=== PATIENT | male | born 1970 | race Caucasian/White ===

== ENCOUNTER 2022-12-24 13:58 | Inpatient (IN) | payer BC ==
[~2022-12-24] VITALS: Ht 188 cm; Wt 84.8 kg
[2022-12-24] MEDS ORDERED: IOHEXOL-350 100 ML BOTTLE ONE (14:27)
[2022-12-24 15:20] LABS: BASOPHILS % 0.5 % (0.0-2.0); EOSINOPHILS % 0.5 % (0.0-5.0); HEMATOCRIT. 49.9 % (42.0-52.0); HEMOGLOBIN. 16.8 g/dL (14.0-18.0); MEAN CORPUSCULAR VOLUME 86.5 fL (80.0-94.0); MEAN PLATELET VOLUME 8.3 fl (7.4-10.4); MONOCYTES % 6.8 % (2.0-8.0); NEUTROPHILS % 66.2 % (40.0-76.0); PLATELET 246 x1000/uL (130-400); RED BLOOD CELL COUNT 5.77 mill/uL (4.7-6.1); RED CELL DISTRIBUTION WIDTH 13.1 % (11.6-14.6)
[2022-12-24 15:25] LABS: CHLORIDE 98 mEq/L (98-107)
[2022-12-24 15:31] LABS: ETHANOL BLOOD < 10 mg/dL
[2022-12-24 16:02] LABS: PROTHROMBIN TIME 10.9 sec (9.6-11.0)
[2022-12-24 17:24] LABS: CLARITY URINE CLEAR (CLEAR); COLOR URINE YELLOW (YELLOW); KETONES URINE TRACE (NEGATIVE); LEUKOCYTE ESTERASE URINE NEGATIVE (NEGATIVE); NITRITE URINE NEGATIVE (NEGATIVE); OCCULT BLOOD URINE NEGATIVE (NEGATIVE); PH URINE 5.5 (4.5-8.0); PROTEIN URINE NEGATIVE (NEGATIVE); SPECIFIC GRAVITY URINE 1.065 (1.005-1.030); UROBILINOGEN URINE 0.2 E.U./dL (0.2-1.0)
[2022-12-24 17:44] LABS: *AMPHETAMINES SCREEN URINE NEGATIVE (NEGATIVE); *BARBITURATES SCREEN URINE NEGATIVE (NEGATIVE); *BENZODIAZEPINES SCREEN URINE NEGATIVE (NEGATIVE); *COCAINE SCREEN URINE NEGATIVE (NEGATIVE); CANNABINOID URINE SCREEN NEGATIVE (NEGATIVE); METHADONE URINE SCREEN NEGATIVE (NEGATIVE); OPIATES URINE SCREEN NEGATIVE (NEGATIVE); PHENCYCLIDINE URINE SCREEN NEGATIVE (NEGATIVE)
[2022-12-24] MEDS ORDERED: DOCUSATE SODIUM 100MG CAPSULE PO PRN (21:30)
[2022-12-24] MEDS ORDERED: CLONIDINE 0.1MG TABLET PO PRN (21:30)
[2022-12-24] MEDS ORDERED: ACETAMINOPHEN 325MG TABLET PO PRN ×2 (21:30)
[2022-12-24] MEDS ORDERED: ONDANSETRON HCL 4MG/2ML INJ IV PRN (21:30)
[2022-12-24] MEDS ORDERED: GUAIFENESIN 200MG/10ML SUGAR FREE UDC PO PRN (21:30)
[2022-12-24] MEDS ORDERED: ASPIRIN 81MG TABLET PO NR (21:30)
[2022-12-24] MEDS ORDERED: IPRATROPIUM/ALBUTEROL 0.5-3(2.5)MG/3ML NEB HHN PRN (21:30)
[2022-12-24] MEDS ORDERED: DEXTROSE 50% WATER 50ML SYRINGE IV PRN (21:30)
[2022-12-24] MEDS ORDERED: CLOPIDOGREL 75MG TABLET PO NR (22:00)
[2022-12-25] VITALS (7 sets, daily range): BP systolic 95–102; BP diastolic 45–75
[2022-12-25 00:48] LABS: T4 FREE 1.2 ng/dL (0.76-1.46)
[2022-12-25 00:59] LABS: FOLIC ACID (FOLATE) SERUM >20 ng/mL ng/mL (>5.38); VITAMIN B12 SERUM 649 pg/mL (211-911)
[2022-12-25 01:05] LABS: CREATINE KINASE 132 IU/L (39-308); CREATINE KINASE MB FRACTION 1.2 ng/mL (0.5-3.6)
[2022-12-25 05:35] LABS: HEMATOCRIT 46.9 % (42.0-52.0); MEAN CORPUSCULAR HEMOGLOBIN 29.4 pg (28.0-32.0); MEAN CORPUSCULAR VOLUME 86.3 fL (80.0-94.0); PLATELET 230 x1000/uL (130-400); RED BLOOD CELL COUNT 5.43 mill/uL (4.7-6.1); RED CELL DISTRIBUTION WIDTH 12.8 % (11.6-14.6)
[2022-12-25 05:42] LABS: CHLORIDE 102 mEq/L (98-107)
[2022-12-25 06:01] LABS: PHOSPHORUS 4.3 mg/dL (2.5-4.9)
[2022-12-25 06:25] LABS: CREATINE KINASE 112 IU/L (39-308); CREATINE KINASE MB FRACTION < 1.0 ng/mL (0.5-3.6)
[2022-12-25] MEDS: BLOOD SUGAR DIAGNOSTIC STRIP TEST SCH ×4 (06:59→21:22)
[2022-12-25] MEDS: INSULIN LISPRO 100 UNITS/ML SUBCUT SCH ×4 (07:28→21:27)
[2022-12-25] MEDS ORDERED: ENOXAPARIN 40MG/0.4ML SYR SUBCUT SCH ×2 (09:00→21:00)
[2022-12-25] MEDS ORDERED: PNEUMOCOCCAL 23-VAL P-SAC VAC 0.5 ML IM ONE (11:45)
[2022-12-25] MEDS ORDERED: INFLUENZA VACCINE 05/PF 0.5 ML SYRINGE IM ONE (11:45)
[2022-12-25] MEDS: CLOPIDOGREL 75MG TABLET PO SCH (12:33)
[2022-12-25] MEDS: GABAPENTIN 100MG CAPSULE PO SCH ×2 (13:43→21:17)
[2022-12-25] MEDS: METFORMIN HCL 500MG TABLET PO SCH (17:57)
[2022-12-25] MEDS ORDERED: ATORVASTATIN CALCIUM 40MG TABLET PO SCH (21:00)
[2022-12-25] MEDS ORDERED: ATORVASTATIN CALCIUM 20MG TABLET PO SCH ×2 (21:00)
[2022-12-26] VITALS: BP 113/84
[2022-12-26 04:00] VITALS: BP 101/77
[2022-12-26] MEDS: GABAPENTIN 100MG CAPSULE PO SCH (06:31)
[2022-12-26] MEDS: BLOOD SUGAR DIAGNOSTIC STRIP TEST SCH ×2 (06:33→12:16)
[2022-12-26] MEDS: METFORMIN HCL 500MG TABLET PO SCH (07:54)
[2022-12-26] MEDS: INSULIN LISPRO 100 UNITS/ML SUBCUT SCH ×2 (07:56→12:34)
[2022-12-26 08:00] VITALS: BP 115/70
[2022-12-26] MEDS: CLOPIDOGREL 75MG TABLET PO SCH (08:01)
== END 2022-12-26 12:30 | disposition home or self-care (01) | DRG 74 ==
LOC: ER 13:58 → MICUSO 18:42 → EDBEDREQ 18:55 → EDBEDREQTM 18:55 → 3WST 12-25 10:18
PROVIDERS: ADMIT Hospitalist; ATTEND Hospitalist
DX: E11.40 Type 2 diabetes mellitus with diabetic neuropathy, unspecified (principal); G45.9 Transient cerebral ischemic attack, unspecified; E78.5 Hyperlipidemia, unspecified; I10 Essential (primary) hypertension; Z86.73 Personal history of transient ischemic attack (TIA), and cerebral infarction without residual deficits; Z79.02 Long term (current) use of antithrombotics/antiplatelets; Z79.84 Long term (current) use of oral hypoglycemic drugs
CPT/HCPCS: 36415; 70496; 70498; 70551; 71045; 80053; 80061; 80305; 80320; 81003; 82550; 82553; 82607; 82746; 82962; 83036; 83540; 83550; 83735; 84100; 84439; 84443; 84484; 85025; 85027; 90686; 90732; 93005; 93306; 97161; 97166; 99291; J1650; J1815; Q9967; G0480